=== PATIENT | male | born 1980 | race African-American/Black ===

== ENCOUNTER 2017-03-14 06:37 | Emergency (ER) | payer MEDICAID ==
[~2017-03-14] VITALS: Ht 177.8 cm; Wt 95.5 kg
[2017-03-14 06:40] VITALS: BP 0/0
[2017-03-14] MEDS ORDERED: SODIUM CHLORIDE 0.9% 1,000 ML IV ONE (07:01)
[2017-03-14] MEDS ORDERED: LORAZEPAM 2MG/ML CPJ IM ONE (07:15)
[2017-03-14] MEDS ORDERED: DIAZEPAM 5 MG TABLET PO ONE (07:30)
== END 2017-03-14 09:08 | disposition left against medical advice (07) ==
LOC: ER 06:37
DX: M62.838 Other muscle spasm (principal); R00.0 Tachycardia, unspecified; J45.909 Unspecified asthma, uncomplicated; R06.00 Dyspnea, unspecified; F17.200 Nicotine dependence, unspecified, uncomplicated; Z88.2 Allergy status to sulfonamides
CPT/HCPCS: 96372; 99291; J2060; Z7610; J7030

== ENCOUNTER 2017-03-31 13:58 | Emergency (ER) | payer MEDICAID ==
[~2017-03-31] VITALS: Ht 175.3 cm; Wt 90.0 kg
[2017-03-31 14:03] VITALS: BP 113/53
[2017-03-31] MEDS ORDERED: LORAZEPAM 2MG/ML CPJ IV STA (14:19)
[2017-03-31] MEDS ORDERED: SODIUM CHLORIDE 0.9% 1,000 ML IV ONE (14:19)
== END 2017-03-31 16:04 | disposition left against medical advice (07) ==
LOC: ER 14:00
DX: F23 Brief psychotic disorder (principal); G92 Toxic encephalopathy; Z53.29 Procedure and treatment not carried out because of patient's decision for other reasons; Z88.2 Allergy status to sulfonamides; F41.9 Anxiety disorder, unspecified; Z87.828 Personal history of other (healed) physical injury and trauma
CPT/HCPCS: 93005; 99284; J2060; J7030; Z7610

== ENCOUNTER 2018-03-30 23:34 | Emergency (ER) | payer MEDICAID ==
[~2018-03-30] VITALS: Ht 165.1 cm; Wt 81.0 kg
[2018-03-30 23:40] VITALS: BP 136/84
== END 2018-03-31 02:00 | disposition left against medical advice (07) ==
LOC: ER 23:48
DX: Z53.21 Procedure and treatment not carried out due to patient leaving prior to being seen by health care provider (principal)

== ENCOUNTER 2018-03-31 14:31 | Emergency (ER) | payer SELFPAY ==
[~2018-03-31] VITALS: Ht 172.7 cm; Wt 65.0 kg
[2018-03-31] MEDS ORDERED: LORAZEPAM 1MG TABLET PO ONE ×2 (15:00→16:15)
[2018-03-31] MEDS ORDERED: CYCLOBENZAPRINE 10MG TABLET PO ONE (15:15)
[2018-03-31 17:02] VITALS: BP 132/80
== END 2018-03-31 17:18 | disposition home or self-care (01) ==
LOC: ER 14:31
DX: T43.621A Poisoning by amphetamines, accidental (unintentional), initial encounter (principal); M54.89 Other dorsalgia; F41.9 Anxiety disorder, unspecified; F15.10 Other stimulant abuse, uncomplicated; Z90.2 Acquired absence of lung [part of]; Z88.2 Allergy status to sulfonamides; Y92.59 Other trade areas as the place of occurrence of the external cause
CPT/HCPCS: 99283